=== PATIENT | male | born 1995 | race Caucasian/White ===

== ENCOUNTER 2016-10-13 15:02 | Emergency (ER) | payer BC, OTHER ==
[~2016-10-13] VITALS: Ht 180.3 cm; Wt 60.4 kg
[2016-10-13 15:18] VITALS: TEMP 36.6; Ht 180.3 cm; Wt 60.4 kg
--- NOTE | 2016-10-13 16:56 | EMERGENCY ROOM VISIT NOTE ---
History First contact with patient: 16:39 Chief Complaint: ABDOMINAL PAIN Stated Complaint: ABDOMINAL PAIN-ОЛЕГ MARES REFERRED Nursing Triage Summary: pt to the ED with c/o abd pain that started this am no n/v/d History of Present Illness The patient is a 21 year old male who presents to the Emergency Room with complaints of waves of abdominal pain. Woke with center and right sided abdominal pain, cramping, 5-6/10 at worse, currently 5/10. No fevers or chills. Staying about the same all day coming and going in waves. Each episode last for 30-60 minutes. Last BM last night which was normal. No urinary Sx. No previous abdominal surgeries. Last ate 10:30am granola bar. Last drink 3:00pm. Review of Systems Constitutional: No fever, No chills Eyes: No worsening of vision ENT: No hearing loss Respiratory: No cough, No sputum, No wheezing, No shortness of breath Cardiovascular: No chest pain, No edema Abdomen: + pain, No nausea, No vomiting, No diarrhea, No constipation, No GI bleeding Musculoskeletal: No joint pain, No muscle pain Genitourinary - Male: No hematuria, No dysuria, No urinary frequency, No urinary urgency Hematologic / Lymphatic: No abnormal bleeding/bruising Integumentary: No rash, No itch Past Medical/Surgical History Surgical Problems: (1) Personal history of (corrected) cleft lip and palate Social History Smoking Status: Never Smoker Alcohol Use: none Drug Use: none Housing Status: lives with family Current/Historical Medications Scheduled Bismuth Subsalicylate (Pepto-Bismol Max Strength), 1 DOSE PO PRN Physical Exam Vital Signs Date Time Temp Pulse Resp B/P (MAP) Pulse Ox O2 Delivery O2 Flow Rate FiO2 10/13/16 20:20 56 16 107/50 98 Room Air 10/13/16 18:30 56 20 115/67 100 Room Air 10/13/16 17:50 52 16 112/69 100 Room Air 10/13/16 15:18 36.6 60 18 113/77 93 Physical Exam General Appearance: WD/WN, no apparent distress Head: normocephalic, atraumatic Eyes: normal inspection, PERRL, EOMI ENT: normal ENT inspection Neck: supple, no adenopathy, trachea midline Respiratory/Chest: chest non-tender, lungs clear, normal breath sounds, no respiratory distress, no accessory muscle use Cardiovascular: regular rate, rhythm, no edema, no murmur, normal peripheral pulses Abdomen / GI: normal bowel sounds, soft, + tenderness (mild suprapubic without guarding or rebound) Back: no CVA tenderness Extremities: no calf tenderness, normal capillary refill, no pedal edema Neurologic/Psych: social insurance administrator II-XII nml as tested, no motor/sensory deficits, alert , oriented x 3 Medical Decision & Procedures ER Provider Diagnostic Interpretation: APPENDIX ULTRASOUND CLINICAL HISTORY: suprapubic and RLQ pain COMPARISON STUDY: No previous studies for comparison. FINDINGS: The appendix was not visualized. Multiple small right lower quadrant lymph nodes were visualized likely reactive. IMPRESSION: Nonvisualization of the appendix. This study is therefore nondiagnostic in regards to acute appendicitis. Electronically signed by: Juan Daniel Coto M.D. 10/13/2016 5:48 PM Dictated Date/Time: 10/13/2016 5:48 PM Laboratory Results 10/13/16 17:00 Red Blood Count 5.30, Mean Corpuscular Volume 88.3, Mean Corpuscular Hemoglobin 31.5, Mean Corpuscular Hemoglobin Concent 35.7, Mean Platelet Volume 10.3, Neutrophils (%) (Auto) 66.3, Lymphocytes (%) (Auto) 24.4, Monocytes (%) (Auto) 7.1, Eosinophils (%) (Auto) 1.5, Basophils (%) (Auto) 0.5, Neutrophils # (Auto) 5.74, Lymphocytes # (Auto) 2.11, Monocytes # (Auto) 0.61, Eosinophils # (Auto) 0.13, Basophils # (Auto) 0.04 10/13/16 17:00 Test 10/13/16 17:00 White Blood Count 8.65 K/uL (4.8-10.8) Red Blood Count 5.30 M/uL (4.7-6.1) Hemoglobin 16.7 g/dL (14.0-18.0) Hematocrit 46.8 % (42-52) Mean Corpuscular Volume 88.3 fL (80-100) Mean Corpuscular Hemoglobin 31.5 pg (25-34) Mean Corpuscular Hemoglobin Concent 35.7 g/dl (32-36) Platelet Count 257 K/uL (130-400) Mean Platelet Volume 10.3 fL (7.4-10.4) Neutrophils (%) (Auto) 66.3 % Lymphocytes (%) (Auto) 24.4 % Monocytes (%) (Auto) 7.1 % Eosinophils (%) (Auto) 1.5 % Basophils (%) (Auto) 0.5 % Neutrophils # (Auto) 5.74 K/uL (1.4-6.5) Lymphocytes # (Auto) 2.11 K/uL (1.2-3.4) Monocytes # (Auto) 0.61 K/uL (0.11-0.59) Eosinophils # (Auto) 0.13 K/uL (0-0.5) Basophils # (Auto) 0.04 K/uL (0-0.2) RDW Standard Deviation 39.7 fL (36.4-46.3) RDW Coefficient of Variation 12.4 % (11.5-14.5) Immature Granulocyte % (Auto) 0.2 % Immature Granulocyte # (Auto) 0.02 K/uL (0.00-0.02) Urine Color YELLOW Urine Appearance CLEAR (CLEAR) Urine pH 7.0 (4.5-7.5) Urine Specific [place] 1.025 (1.000-1.030) Urine Protein NEG (NEG) Urine Glucose (UA) NEG (NEG) Urine Ketones NEG (NEG) Urine Occult Blood NEG (NEG) Urine Nitrite NEG (NEG) Urine Bilirubin NEG (NEG) Urine Urobilinogen NEG (NEG) Urine Leukocyte Esterase NEG (NEG) Urine WBC (Auto) 0 /hpf (0-5) Urine RBC (Auto) 0-4 /hpf (0-4) Urine Hyaline Casts (Auto) 1-5 /lpf (0-5) Urine Epithelial Cells (Auto) 10-20 /lpf (0-5) Urine Bacteria (Auto) NEG (NEG) Anion Gap 6.0 mmol/L (3-11) Est Creatinine Clear Calc Drug Dose 104.9 ml/min Estimated GFR () 131.4 Estimated GFR (Non- 113.3 BUN/Creatinine Ratio 17.0 (10-20) Calcium Level 9.5 mg/dl (8.5-10.1) Total Bilirubin 0.6 mg/dl (0.2-1) Direct Bilirubin 0.2 mg/dl (0-0.2) Aspartate Amino Transf (AST/SGOT) 19 U/L (15-37) Alanine Aminotransferase (ALT/SGPT) 23 U/L (12-78) Alkaline Phosphatase 57 U/L (45-117) Total Protein 7.8 gm/dl (6.4-8.2) Albumin 4.3 gm/dl (3.4-5.0) Lipase 160 U/L (73-393) Medications Administered Medications (Trade) Dose Ordered Sig/[place] Route Start Time Stop Time Status Last Admin Dose Admin Sodium Chloride 1,000 ml @ 999 mls/hr Q1H1M STAT IV 10/13/16 17:03 10/13/16 18:03 DC 10/13/16 17:11 999 MLS/HR Morphine Sulfate (MoRPHine SULFATE INJ) 4 mg NOW STAT IV 10/13/16 17:55 10/13/16 17:57 DC 10/13/16 18:44 4 MG Ondansetron HCl (Zofran Inj) 4 mg NOW STAT IV 10/13/16 17:55 10/13/16 17:57 DC 10/13/16 18:44 4 MG Ondansetron HCl (ZOFRAN ODT 4MG Home Pack) 1 homepack UD ONCE PO 10/13/16 20:30 10/13/16 20:31 DC 10/13/16 20:30 1 HOMEPACK ED Course 16:35 History and physical performed by myself 16:[address] Mcdonald who separately performed history and examination 18:50 Patient reassessed and not in pain after morphine given 19:45 Patient was reassessed, no longer in pain. Discussed plan for discharge with patient and his parents at bedside. Medical Decision Prior records/ancillary studies reviewed. Triage Nursing notes reviewed. Additional history obtained from patient. The patient's history was concerning for abdominal pain. Differential diagnosis: Etiologies such as appendicitis, diverticulitis, PUD, biliary pathology, UTI, pancreatitis, obstruction, mesenteric ischemia, aortic pathology, infections, inflammatory bowel disease, renal colic, as well as others were entertained. Physical examination findings: As above. ER treatment provided: NSS bolus 1L Morphine 4mg IV Ondansetron 4mg SL On reassessment the patient felt better. Diagnostics interpreted by me: The labs were unremarkable including normal WBC UA was negative for infection Imaging studies: US appendix - non diagnostic CT A/P with oral and IV contrast was normal By the evaluation outlined above emergent etiologies such as appendicitis, diverticulitis, PUD, biliary pathology, UTI, pancreatitis, obstruction, mesenteric ischemia, aortic pathology, infections, inflammatory bowel disease, renal colic, as well as others were deemed relatively unlikely. The patient and his parents were informed about the findings as listed above. All questions were answered and they were pleased with the treatment. Return instructions were outlined and the patient was discharged in stable condition. He was given an ondansetron homepak for use if any further nausea at home. Instructed to use ibuprofen and acetaminophen as needed for pain Referral: The patient was referred back to their primary care physician for follow-up in 1 to 2 days for a recheck of the current condition. Medication Reconcilliation Current Medication List: was personally reviewed by me Impression Primary Impression: Suprapubic pain Departure Information Dispostion Home / Self-Care Condition GOOD Referrals Carlton Rose M.D. (PCP) Patient Instructions My [facility] Additional Instructions ABDOMINAL PAIN INSTRUCTIONS: DO NOT drive, drink alcohol, operate machinery, or perform dangerous activities today. You were given medications in the ER that can affect your ability to safely function or operate a vehicle. Ibuprofen(Motrin, Advil) may be used for fever or pain. Use 600mg every six hours as needed. Take with food. Avoid using more than 2400mg in a 24 hour period. Do not use 2400mg per day for more than three consecutive days without physician direction. Prolonged inappropriate use can lead to stomach upset or ulcers. This is available over the counter and typically comes in 200mg tablets. (AND/OR) Acetaminophen(Tylenol) may be used for fever or pain. Use 1000mg every eight hours as needed. Avoid using more than 3000mg in a 24 hour period. This is available over the counter. Zofran(odansetron) tablets 4mg: Take one and allow it to dissolve in your mouth every four hours as needed for nausea or vomiting. Read all the package inserts or medication information paperwork provided. If you have any questions or concerns call your primary provider, pharmacist or the ER for assistance. Rest and drink plenty of fluids as tolerated. Slow sips of water or sports drinks are recommended instead of large amounts all at once. Continue current medications. Once your stomach is settled start with a clear liquid diet (jello, soup broth, etc.) and then advance as tolerated. You should avoid full, heavy meals for about 24 hrs from the time your symptoms resolved. Return to the ER immediately for worsening or persistent abdominal pain, vomiting, fevers, chest pains, difficulty breathing, black or bloody stools, worsening of your condition, or as needed. Follow up with your primary physician in 1-2 days for a recheck of your current condition.
[2016-10-13] MEDS ORDERED: SODIUM CHLORIDE 0.9% 1000ML 1,000 ML IV STA (17:03)
[2016-10-13 17:09] LABS: BASO % 0.5 %; BASO ABS # 0.04 K/uL (0-0.2); COMPLETE YES; EOS % 1.5 %; HEMATOCRIT 46.8 % (42-52); IG% 0.2 %; LYMPH % 24.4 %; LYMPH ABS # 2.11 K/uL (1.2-3.4); MEAN CELL VOLUME 88.3 fL (80-100); MEAN CORPUSCULAR HEMOGLOBIN 31.5 pg (25-34); MEAN CORPUSCULAR HGB CONC 35.7 g/dl (32-36); MEAN PLATELET VOLUME 10.3 fL (7.4-10.4); MONO % 7.1 %; NEUT % 66.3 %; PLATELET COUNT 257 K/uL (130-400); WHITE BLOOD COUNT 8.65 K/uL (4.8-10.8)
[2016-10-13 17:12] LABS: URINE APPEARANCE CLEAR (CLEAR); URINE BILIRUBIN NEG (NEG); URINE COLOR YELLOW; URINE NITRITE NEG (NEG); URINE SPECIFIC GRAVITY 1.025 (1.000-1.030); UROBILINOGEN NEG (NEG); ZZUR CULT IF INDIC CLEAN CATCH NO
[2016-10-13] MEDS ORDERED: OPTIRAY 320 IV PRN (17:15)
[2016-10-13] MEDS ORDERED: [UNRECOGNIZED DRUG - CODE] PO (17:18)
[2016-10-13 17:19] LABS: MANUAL MICROSCOPIC REQUIRED? NO; REVIEW REQ? NO
[2016-10-13 17:25] LABS: CALCIUM 9.5 mg/dl (8.5-10.1); CREATININE 0.96 mg/dl (0.60-1.40); POTASSIUM 3.6 mmol/L (3.5-5.1)
--- NOTE | 2016-10-13 17:50 | DIAGNOSTIC IMAGING REPORT ---
APPENDIX ULTRASOUND CLINICAL HISTORY: suprapubic and RLQ pain COMPARISON STUDY: No previous studies for comparison. FINDINGS: The appendix was not visualized. Multiple small right lower quadrant lymph nodes were visualized likely reactive. IMPRESSION: Nonvisualization of the appendix. This study is therefore nondiagnostic in regards to acute appendicitis. Electronically signed by: Juan Daniel Coto M.D. 10/13/2016 5:48 PM Dictated Date/Time: 10/13/2016 5:48 PM
[2016-10-13] MEDS ORDERED: MoRPHine SULFATE 4 MG/ML 1 ML CARP\\VIAL IV STA (17:55)
[2016-10-13] MEDS ORDERED: ONDANSETRON INJ 2 MG/ML 2 ML VIAL IV STA (17:55)
--- NOTE | 2016-10-13 19:28 | DIAGNOSTIC IMAGING REPORT ---
CT ABD/PELVIS IV AND ORAL CONT CLINICAL HISTORY: suprapubic and RLQ pain ?appendicitis COMPARISON STUDY: Appendiceal ultrasound dated 10/13/2016 TECHNIQUE: Following the IV administration of 93 mL of Optiray-320, CT scan of the abdomen and pelvis was performed from the lung bases to the proximal femurs. Images are reviewed in the axial, sagittal, and coronal planes. IV contrast was administered without complication. A dose lowering technique was utilized adhering to the principles of ALARA. CT DOSE: 272.78 mGy.cm FINDINGS: Lower chest: The heart is normal in size and configuration, without pericardial effusion. The lung bases and pleural spaces are clear. Liver: The contrast-enhanced liver is normal in size, contour, and attenuation. There is no intrahepatic biliary ductal dilatation. The hepatic veins and portal veins are patent. Gallbladder: Unremarkable. Spleen: Normal in size and attenuation. Pancreas: Unremarkable. Adrenal glands: Unremarkable. Kidneys: There is symmetric renal cortical enhancement. The kidneys are normal in size without hydronephrosis. Bowel: There are no transition zones indicate bowel obstruction. There is no acute diverticulitis. The appendix appears normal. Peritoneum: There is no intraperitoneal free air or abdominal ascites. There is very subtle increased attenuation of the fat in the right paracolic gutter. Vasculature: The abdominal aorta is normal in course and caliber. Adenopathy: None. Pelvic viscera: Mild prominence the bladder wall is likely secondary to incomplete distention Skeletal structures: Degenerative changes are present the L5-S1 level. IMPRESSION: 1. No evidence of bowel obstruction. No evidence of free air 2. Normal appendix 3. No evidence of acute diverticulitis Electronically signed by: Juan Daniel Coto M.D. 10/13/2016 7:26 PM Dictated Date/Time: 10/13/2016 7:22 PM
[2016-10-13 20:20] VITALS: BP 107/50; PULSE 56; O2SAT 98
[2016-10-13] MEDS ORDERED: ONDANSETRON HOME PACK 4MG OD TAB ONE (20:25)
[2016-10-13] MEDS ORDERED: ONDANSETRON HOME PACK 4MG OD TAB PO ONE (20:30)
--- NOTE | 2016-10-13 22:19 | EMERGENCY ROOM VISIT NOTE ---
History Report prepared by Ami: Lavinia Youssef Under the Supervision of: Dr. Karlos Mcdonald D.O. First contact with patient: 16:39 Chief Complaint: ABDOMINAL PAIN Stated Complaint: ABDOMINAL PAIN-ELANER WALKIN REFERRED Nursing Triage Summary: pt to the ED with c/o abd pain that started this am no n/v/d History of Present Illness The patient is a 21 year old male who presents to the Emergency Room with complaints of persistent abdominal pain starting this morning. He had the pain when he woke up this morning. He did not have any pain last night. He currently rates his discomfort as a 5/10 in severity. The pain seems to worsen when he walks extended distances. He went to the walk in clinic at [facility] and was sent here. He denies any nausea, vomiting, diarrhea, cough, rhinorrhea, sore throat, or testicular pain. His last BM was last night and was normal. He denies eating any abnormal food. He denies any previous abdominal surgeries or medical problems. Source of History: patient Onset: this morning Position: abdomen (lower) Symptom Intensity: 5/10 Quality: other (pain) Timing: other (persistent) Modifying Factors (Worsening): other (walking long distances) Associated Symptoms: No sorethroat, No cough, No nausea, No vomiting, No diarrhea Note: Pt denies rhinorrhea, testicular pain. Review of Systems See HPI for pertinent positives & negatives. A total of 10 systems reviewed and were otherwise negative. Past Medical & Surgical Surgical Problems: (1) Personal history of (corrected) cleft lip and palate Family History No pertinent family history stated. Social History Smoking Status: Never Smoker Marital Status: single Occupation Status: student Current/Historical Medications Scheduled Bismuth Subsalicylate (Pepto-Bismol Max Strength), 1 DOSE PO PRN Allergies Coded Allergies: Cephalexin (Verified Allergy, Severe, RASH, 10/13/16) Physical Exam Vital Signs Date Time Temp Pulse Resp B/P (MAP) Pulse Ox O2 Delivery O2 Flow Rate FiO2 10/13/16 20:20 56 16 107/50 98 Room Air 10/13/16 18:30 56 20 115/67 100 Room Air 10/13/16 17:50 52 16 112/69 100 Room Air 10/13/16 15:18 36.6 60 18 113/77 93 Physical Exam GENERAL: sitting up in bed, alert, well appearing, well nourished, no distress, non-toxic EYE EXAM: normal conjunctiva OROPHARYNX: no exudate, no erythema, lips, buccal mucosa, and tongue normal and mucous membranes are moist NECK: supple, no nuchal rigidity, no adenopathy, non-tender LUNGS: Clear to auscultation. Normal chest wall mechanics HEART: no murmurs, S1 normal and S2 normal ABDOMEN: abdomen soft, mild tenderness in the infraumbilical region, normo- active bowel sounds, no masses, no rebound or guarding. BACK: Back is symmetrical on inspection and there is no deformity, no midline tenderness, no CVA tenderness. SKIN: no rashes and no bruising UPPER EXTREMITIES: upper extremities are grossly normal. LOWER EXTREMITIES: No pitting edema. NEURO EXAM: Normal sensorium, cranial nerves II-XII grossly intact, normal speech, no gross weakness of arms, no gross weakness of legs. Medical Decision & Procedures ER Provider Diagnostic Interpretation: Radiology results as stated below per my review and the radiologist's interpretation: APPENDIX ULTRASOUND CLINICAL HISTORY: suprapubic and RLQ pain COMPARISON STUDY: No previous studies for comparison. FINDINGS: The appendix was not visualized. Multiple small right lower quadrant lymph nodes were visualized likely reactive. IMPRESSION: Nonvisualization of the appendix. This study is therefore nondiagnostic in regards to acute appendicitis. Electronically signed by: Juan Daniel Coto M.D. 10/13/2016 5:48 PM Dictated Date/Time: 10/13/2016 5:[address] ABD/PELVIS IV AND ORAL CONT CLINICAL HISTORY: suprapubic and RLQ pain ?appendicitis COMPARISON STUDY: Appendiceal ultrasound dated 10/13/2016 TECHNIQUE: Following the IV administration of 93 mL of Optiray-320, CT scan of the abdomen and pelvis was performed from the lung bases to the proximal femurs. Images are reviewed in the axial, sagittal, and coronal planes. IV contrast was administered without complication. A dose lowering technique was utilized adhering to the principles of ALARA. CT DOSE: 272.78 mGy.cm FINDINGS: Lower chest: The heart is normal in size and configuration, without pericardial effusion. The lung bases and pleural spaces are clear. Liver: The contrast-enhanced liver is normal in size, contour, and attenuation. There is no intrahepatic biliary ductal dilatation. The hepatic veins and portal veins are patent. Gallbladder: Unremarkable. Spleen: Normal in size and attenuation. Pancreas: Unremarkable. Adrenal glands: Unremarkable. Kidneys: There is symmetric renal cortical enhancement. The kidneys are normal in size without hydronephrosis. Bowel: There are no transition zones indicate bowel obstruction. There is no acute diverticulitis. The appendix appears normal. Peritoneum: There is no intraperitoneal free air or abdominal ascites. There is very subtle increased attenuation of the fat in the right paracolic gutter. Vasculature: The abdominal aorta is normal in course and caliber. Adenopathy: None. Pelvic viscera: Mild prominence the bladder wall is likely secondary to incomplete distention Skeletal structures: Degenerative changes are present the L5-S1 level. IMPRESSION: 1. No evidence of bowel obstruction. No evidence of free air 2. Normal appendix 3. No evidence of acute diverticulitis Electronically signed by: Juan Daniel Coto M.D. 10/13/2016 7:26 PM Dictated Date/Time: 10/13/2016 7:22 PM Laboratory Results 10/13/16 17:00 Red Blood Count 5.30, Mean Corpuscular Volume 88.3, Mean Corpuscular Hemoglobin 31.5, Mean Corpuscular Hemoglobin Concent 35.7, Mean Platelet Volume 10.3, Neutrophils (%) (Auto) 66.3, Lymphocytes (%) (Auto) 24.4, Monocytes (%) (Auto) 7.1, Eosinophils (%) (Auto) 1.5, Basophils (%) (Auto) 0.5, Neutrophils # (Auto) 5.74, Lymphocytes # (Auto) 2.11, Monocytes # (Auto) 0.61, Eosinophils # (Auto) 0.13, Basophils # (Auto) 0.04 10/13/16 17:00 Test 10/13/16 17:00 White Blood Count 8.65 K/uL (4.8-10.8) Red Blood Count 5.30 M/uL (4.7-6.1) Hemoglobin 16.7 g/dL (14.0-18.0) Hematocrit 46.8 % (42-52) Mean Corpuscular Volume 88.3 fL (80-100) Mean Corpuscular Hemoglobin 31.5 pg (25-34) Mean Corpuscular Hemoglobin Concent 35.7 g/dl (32-36) Platelet Count 257 K/uL (130-400) Mean Platelet Volume 10.3 fL (7.4-10.4) Neutrophils (%) (Auto) 66.3 % Lymphocytes (%) (Auto) 24.4 % Monocytes (%) (Auto) 7.1 % Eosinophils (%) (Auto) 1.5 % Basophils (%) (Auto) 0.5 % Neutrophils # (Auto) 5.74 K/uL (1.4-6.5) Lymphocytes # (Auto) 2.11 K/uL (1.2-3.4) Monocytes # (Auto) 0.61 K/uL (0.11-0.59) Eosinophils # (Auto) 0.13 K/uL (0-0.5) Basophils # (Auto) 0.04 K/uL (0-0.2) RDW Standard Deviation 39.7 fL (36.4-46.3) RDW Coefficient of Variation 12.4 % (11.5-14.5) Immature Granulocyte % (Auto) 0.2 % Immature Granulocyte # (Auto) 0.02 K/uL (0.00-0.02) Urine Color YELLOW Urine Appearance CLEAR (CLEAR) Urine pH 7.0 (4.5-7.5) Urine Specific [place] 1.025 (1.000-1.030) Urine Protein NEG (NEG) Urine Glucose (UA) NEG (NEG) Urine Ketones NEG (NEG) Urine Occult Blood NEG (NEG) Urine Nitrite NEG (NEG) Urine Bilirubin NEG (NEG) Urine Urobilinogen NEG (NEG) Urine Leukocyte Esterase NEG (NEG) Urine WBC (Auto) 0 /hpf (0-5) Urine RBC (Auto) 0-4 /hpf (0-4) Urine Hyaline Casts (Auto) 1-5 /lpf (0-5) Urine Epithelial Cells (Auto) 10-20 /lpf (0-5) Urine Bacteria (Auto) NEG (NEG) Anion Gap 6.0 mmol/L (3-11) Est Creatinine Clear Calc Drug Dose 104.9 ml/min Estimated GFR () 131.4 Estimated GFR (Non- 113.3 BUN/Creatinine Ratio 17.0 (10-20) Calcium Level 9.5 mg/dl (8.5-10.1) Total Bilirubin 0.6 mg/dl (0.2-1) Direct Bilirubin 0.2 mg/dl (0-0.2) Aspartate Amino Transf (AST/SGOT) 19 U/L (15-37) Alanine Aminotransferase (ALT/SGPT) 23 U/L (12-78) Alkaline Phosphatase 57 U/L (45-117) Total Protein 7.8 gm/dl (6.4-8.2) Albumin 4.3 gm/dl (3.4-5.0) Lipase 160 U/L (73-393) Laboratory results per my review. Medications Administered Medications (Trade) Dose Ordered Sig/[place] Route Start Time Stop Time Status Last Admin Dose Admin Sodium Chloride 1,000 ml @ 999 mls/hr Q1H1M STAT IV 10/13/16 17:03 10/13/16 18:03 DC 10/13/16 17:11 999 MLS/HR Morphine Sulfate (MoRPHine SULFATE INJ) 4 mg NOW STAT IV 10/13/16 17:55 10/13/16 17:57 DC 10/13/16 18:44 4 MG Ondansetron HCl (Zofran Inj) 4 mg NOW STAT IV 10/13/16 17:55 10/13/16 17:57 DC 10/13/16 18:44 4 MG Ondansetron HCl (ZOFRAN ODT 4MG Home Pack) 1 homepack UD ONCE PO 10/13/16 20:30 10/13/16 20:31 DC 10/13/16 20:30 1 HOMEPACK ED Course ED COURSE: Vital signs were reviewed and showed bradycardia The patients medical record was reviewed The above diagnostic studies were performed and reviewed. ED treatments and interventions as stated above. 1703: NSS 1000 ml @ 999 mls/hr IV. 1704: The patient was evaluated in room A12B. A complete history and physical examination was performed. 1755: Zofran Inj 4 mg IV, Morphine Sulfate 4 mg IV. 2016: Upon reevaluation, the patient is resting comfortably.I discussed my findings with the patient and he understands and agrees with the treatment plan. Based on the patients age, coexisting illnesses, exam and lab findings the decision to treat as an outpatient was made. The patient remained stable while under my care. The patient appeared well at the time of discharge. 2024: Ondansetron HCl 1 homepack PO. Medical Decision Differential diagnoses includes but is not limited to gastritis, peptic ulcer disease, GERD, gallbladder disease, pancreatitis, small bowel obstruction, acute coronary syndrome, pericarditis, ischemic bowel, irritable bowel disease, irritable bowel syndrome, appendicitis, diverticulitis, malignancy, hernia, urinary tract infection, torsion, perforation, trauma, infectious. Patient is a 21-year-old male who presents the ER for abdominal pain which is located in the periumbilical region. He is referred in by the urgent care for possible appendicitis. He has no other complaints. Exam is completely benign. CBC along with BMP, LFTs, bilirubin and lipase was unremarkable. UA was unremarkable. Ultrasound did not visualize the appendix. CT of abdomen pelvis was negative. Patient was updated bedside discharged follow-up PCP. Discussed with Pt concerning signs and symptoms to watch out for. Pt was instructed to follow up with their PCP and discussed with the patient their option to return to the ED at anytime for persistent or worsening symptoms. The appropriate anticipatory guidance and out-patient management, including indications for return to the emergency department, were explained at length to the patient and understood. Medication Reconcilliation Current Medication List: was personally reviewed by me Blood Pressure Screening Patient's blood pressure: Normal blood pressure Blood pressure disposition: Did not require urgent referral Impression Primary Impression: Lower abdominal pain Scribe Attestation The scribe's documentation has been prepared under my direction and personally reviewed by me in its entirety. I confirm that the note above accurately reflects all work, treatment, procedures, and medical decision making performed by me. Departure Information Dispostion Home / Self-Care Referrals Carlton Rose M.D. (PCP) Forms HOME CARE DOCUMENTATION FORM, IMPORTANT VISIT INFORMATION Patient Instructions My [facility] Additional Instructions ABDOMINAL PAIN INSTRUCTIONS: DO NOT drive, drink alcohol, operate machinery, or perform dangerous activities today. You were given medications in the ER that can affect your ability to safely function or operate a vehicle. Ibuprofen(Motrin, Advil) may be used for fever or pain. Use 600mg every six hours as needed. Take with food. Avoid using more than 2400mg in a 24 hour period. Do not use 2400mg per day for more than three consecutive days without physician direction. Prolonged inappropriate use can lead to stomach upset or ulcers. This is available over the counter and typically comes in 200mg tablets. (AND/OR) Acetaminophen(Tylenol) may be used for fever or pain. Use 1000mg every eight hours as needed. Avoid using more than 3000mg in a 24 hour period. This is available over the counter. Zofran(odansetron) tablets 4mg: Take one and allow it to dissolve in your mouth every four hours as needed for nausea or vomiting. Read all the package inserts or medication information paperwork provided. If you have any questions or concerns call your primary provider, pharmacist or the ER for assistance. Rest and drink plenty of fluids as tolerated. Slow sips of water or sports drinks are recommended instead of large amounts all at once. Continue current medications. Once your stomach is settled start with a clear liquid diet (jello, soup broth, etc.) and then advance as tolerated. You should avoid full, heavy meals for about 24 hrs from the time your symptoms resolved. Return to the ER immediately for worsening or persistent abdominal pain, vomiting, fevers, chest pains, difficulty breathing, black or bloody stools, worsening of your condition, or as needed. Follow up with your primary physician in 1-2 days for a recheck of your current condition.
== END 2016-10-13 20:30 | disposition home or self-care (01) ==
LOC: C.EDB 15:06 → C.EDA 20:30
DX: R10.30 Lower abdominal pain, unspecified (principal); R10.84 Generalized abdominal pain; Z87.730 Personal history of (corrected) cleft lip and palate